=== PATIENT | male | born 1995 | race Native Hawaiian/Other Pacific Islander ===

== ENCOUNTER 2023-01-06 08:38 | Emergency (ER) | payer OTHER ==
[~2023-01-06] VITALS: Ht 170.2 cm; Wt 59.0 kg
[2023-01-06 09:30] LABS: PLATELET COUNT 270 K/uL (142-355)
[2023-01-06 09:39] LABS: POTASSIUM 4.1 mmol/L (3.6-5.2)
[2023-01-06 10:43] VITALS: BP 115/79; TEMP 98.4
== END 2023-01-06 13:55 | disposition home or self-care (01) ==
LOC: ED 08:38
PROVIDERS: Family Medicine
DX: J06.9 Acute upper respiratory infection, unspecified (principal); H66.92 Otitis media, unspecified, left ear
CPT/HCPCS: 36600; 80053; 80307; 81002; 82805; 83605; 83735; 85027; 85379; 87040; 87502; 87635; 87651; 93005; 94664; 96361; 96374; 99284; J1100; U0003

== ENCOUNTER 2023-01-07 22:36 | Emergency (ER) | payer OTHER ==
[~2023-01-07] VITALS: Ht 170.2 cm; Wt 59.0 kg
[2023-01-07 23:55] VITALS: BP 139/89; TEMP 98.4
== END 2023-01-07 23:55 | disposition home or self-care (01) ==
LOC: ED 22:36
DX: H66.90 Otitis media, unspecified, unspecified ear (principal); J18.9 Pneumonia, unspecified organism; F17.290 Nicotine dependence, other tobacco product, uncomplicated
CPT/HCPCS: 84484; 93005; 99282